=== PATIENT | male | born 1990 | race Two or more races ===

== ENCOUNTER 2024-12-21 06:34 | Emergency (ER) | payer MEDICAID, SELFPAY ==
[2024-12-21 06:35] VITALS: BMI 22.2
[2024-12-21 06:45] VITALS: BP 126/83; PULSE 60; RESP 18; TEMP 37; O2SAT 97
--- NOTE | 2024-12-21 07:16 | PD.EDRME ---
Rapid Medical Screening Exam [facility] Arrival date/time: 12/21/24 06:34 This is a 34-year-old male that comes into the emergency room with complaints of abdominal pain. Patient denies any fever, nausea, vomiting, diarrhea. Patient states his abdominal pain is to the left side. Patient has a history of a seizure disorder. Patient denies alcohol and drug use. I have greeted and performed a focused initial assessment of this patient. Initial appropriate labs ordered at this time. A comprehensive ED assessment and evaluation of the patient and analysis of all test and completion of medical decision making process will be conducted by additional ED provider. Chief Complaint: Abdominal Pain Time Seen by Provider: 12/21/24 06:43 Vital signs: Vital Signs Temperature 98.6 F 12/21/24 06:45 Pulse Rate 60 12/21/24 06:45 Respiratory Rate 18 12/21/24 06:45 Blood Pressure 126/83 12/21/24 06:45 Pulse Oximetry (%) 97 12/21/24 06:45 Oxygen Delivery Method Room Air 12/21/24 06:45 Exam: Alert and oriented, breathing even and unlabored complains of left sided abdominal pain Clinical Impression: Abdominal pain
[2024-12-21 07:24] LABS: Collection Type, Urine Voided; Squamous Epithelial Cell,Urine 0 /hpf (0-5)
[2024-12-21 07:29] LABS: Basophils # (Auto) 0.0 Thou/mm3 (0.0-0.2); Basophils % (Auto) 0 % (0-2.5); Eosinophils # (Auto) 0.1 Thou/mm3 (0.0-0.5); Eosinophils % (Auto) 1 % (0-10); Hematocrit 46.3 % (41.0-53.0); Hemoglobin 16.1 g/dL (13.5-16.0); Immature Granulocytes Auto 0.03 Thou/mm3 (0.00-0.00); Lymphocytes # (Auto) 1.5 Thou/mm3 (1.0-4.8); Lymphocytes % (Auto) 14 % (10-50); Mean Corpuscular HGB Conc 34.8 g/dl (31.0-37.0); Mean Corpuscular Hemoglobin 28.3 pg (25.0-35.0); Mean Corpuscular Volume 82 fL (80-100); Monocytes # (Auto) 0.8 Thou/mm3 (0.0-0.8); Monocytes % (Auto) 8 % (0-12); Neutrophils # (Auto) 7.8 Thou/mm3 (1.8-7.7); Neutrophils % (Auto) 76 % (37-80); Nucleated Red Blood Cell # 0.00 Thou/mm3 (0.00-0.00); Nucleated Red Blood Cell % 0 /100 WBC (0); Platelet Count 280 Thou/mm3 (140-440); RDW Standard Deviation 37.1 fL (35.1-43.9); Red Blood Count 5.68 Miln/mm3 (4.50-5.90); White Blood Count 10.3 Thou/mm3 (3.8-10.6)
[2024-12-21 07:55] LABS: Bilirubin,Urine Negative (Negative); Blood,Urine 2+ (Negative); Color,Urine Lt-Yellow (Lt Yel-Yel); Culture Indicated,Urine Not Indicated; Glucose, Urine Negative (Negative); Ketones,Urine Negative (Negative); Leukocyte Esterase,Urine Negative (Negative); Nitrite,Urine Negative (Negative); PH,Urine 6.0 (5.0-7.0); Protein,Urine Negative (Neg - Trace); RBC,Urine 41 /hpf (0-3); Specific Gravity,Urine 1.023 (1.001-1.035); Urobilinogen,Urine Negative mg/dL (0.0-1.0); WBC,Urine 2 /hpf (0-5)
[2024-12-21 07:57] LABS: Clarity,Urine Hazy (Clear/Hazy)
[2024-12-21 08:00] LABS: Alanine Aminotransferase 31 U/L (10-49); Albumin, Serum 4.9 gm/dL (3.5-5.0); Albumin/Globulin Ratio 2.2 (1.2-2.2); Alkaline Phosphatase 59 U/L (46-116); Anion Gap 7 (7-16); Aspartate Amino Transferase 24 U/L (0-34); BUN/Creatinine Ratio 11 Ratio (12-20); Bilirubin,Total 0.8 mg/dL (0.3-1.2); Blood Urea Nitrogen 9 mg/dL (9-23); Calcium 9.5 mg/dL (8.3-10.6); Calcium (Corrected) 9.5 mg/dL (8.5-10.1); Carbon Dioxide 29.1 mMol/L (20.0-31.0); Chloride 106 mMol/L (98-107); Creatinine (Component) 0.8 mg/dL (0.6-1.3); Estimated Creatinine Clearance 126.9 mL/min (>60); Globulin 2.2 gm/dL (2.3-3.5); Glucose 105 mg/dL (74-106); Lipase 30 U/L (12-53); Osmolality,Calculated 281 (275-295); Potassium 3.7 mMol/L (3.4-5.1); Sodium 142 mMol/L (136-145); Total Protein 7.1 gm/dL (5.7-8.2); eGFR > 60 See Note
[2024-12-21 08:22] LABS: Amphetamine/Methamp Scrn,U Negative (Negative); Barbiturate Screen,Urine Negative (Negative); Benzodiazepines Screen,Urine Negative (Negative); Benzoylecgonine Screen, Ur Negative (Negative); Fentanyl Screen,Urine Negative (Negative); Opiate Screen,Urine Positive (Negative); THC Screen,Urine Positive (Negative)
--- NOTE | 2024-12-21 10:36 | XR_ITS ---
Examination: Abdomen AP single view Technique: AP portable supine abdomen, single view Exam date and time: December 21, 2024, 11:00 a.m. INDICATIONS: Abdominal pain today. FINDINGS: Moderate to large amount of stool throughout the colon. No obstruction. No free air IMPRESSION: Nonobstructive bowel gas pattern
--- NOTE | 2024-12-21 10:45 | EDNOTE_ITS ---
<Statement entered by Viviane Mccullough MD - 12/21/24 16:34> I, Viviane Mccullough MD, have reviewed the history, exam, and assessment of the patient. I have evaluated the patient independently and agree with the plan of care documented by [ ]. All diagnostic studies were reviewed and discussed. I confirm the diagnosis as documented by the Resident. I was present during the Medical Decision Making for this patient. The patient's plan of care was created between myself and the Resident and consistent with our discussion of the patient's case. ED Abdominal Pain RME/HPI General Chief Complaint: Abdominal Pain Stated complaint: L SIDE ABD PAIN Time seen by provider: 12/21/24 06:43 Arrival date/time: 12/21/24 06:34 RME / HPI RME / HPI narrative: 12/21/24 06:34 Patient is a 34-year-old male with a past medical history of status post fistulectomy, hemorrhoidectomy, and history of seizures on Keppra 750 extended release at home who presented to the emergency room via private vehicle with a chief complaint of left-sided pain at the lower quadrant. Pain is localized to the right lower quadrant, described as sharp, 7 out of 10 but has improved since arriving to the emergency room. Patient has nausea and vomiting on Sunday and last bowel movement was early Sunday. Melena or hematochezia. Denied hematemesis. Denied diarrhea. Denied any sick contacts. Denied history of inflammatory bowel disease. Denied Alcohol Use and Denied illicit drug use Exam: Alert and oriented, breathing even and unlabored complains of left sided abdominal pain Impression: Abdominal pain Related Data Home Medications ?Medication ?Instructions ?Recorded ?Confirmed levetiracetam 1,000 mg tablet 1,000 mg PO BID 03/19/18 12/12/21 (Keppra) Previous Rx's ?Medication ?Instructions ?Recorded lidocaine 5 % topical ointment 5 mg topical TID PRN He morrhoid 12/12/21 surgery 30 days #50 grams acetaminophen 300 mg-codeine 30 mg 1 tab PO BID PRN pa in #14 tabs 10/16/22 tablet polyethylene glycol 3350 17 4 g PO QDAY Constipation 1 week 12/21/24 gram/dose oral powder (Miralax) #28 grams simethicone 62.5 mg oral strips 1 strip PO QDAY PRN ab dominal 12/21/24 (Gas-X) distention #18 ea Allergies Allergy/AdvReac Type Severity Reaction Status Date / Time No Known Allergies Allergy Verified 12/21/24 06:40 Review of Systems Review of Systems Narrative Review of Systems: General appearance: NO weight change, NO fatigue, NO weakness, NO fever, NO chills, NO night sweats, No cough Skin: NO rash, NO itching, NO sores, NO moles HEENT: NO Trauma, NO nausea, NO vomiting, NO visual changes, NO blurry vision, NO double vision, NO tinnitus, NO vertigo, NO ear discharge, NO rhinorrhea, NO stuffiness, NO sneezing, NO allergy, NO epistaxis. NO Hoarseness, NO sore throat, NO swollen neck. Cardiac: NO Palpitations, NO dyspnea on exertion, NO orthopnea, NO paroxysmal nocturnal dyspnea, NO edema Respiratory: NO Shortness of Breath, NO Wheezing, NO Cough, NO Sputum, NO hemoptysis GI:NO appetite, yes nausea, yes vomiting, NO dysphagia, NO changes in bowel frequency, NO stool color, NO diarrhea, NO constipation, NO hemetemesis, hx of hemorrhoids, NO melena, NO hematechezia, Yes abdominal pain, NO jaundice Renal: NO frequency, NO hesitancy, NO urgency, NO hematuria, NO nocturia, NO incontinence MSK: NO muscle weakness, NO gout, NO arthritis, NO muscle stiffness Neuro: NO headaches, NO tremors, NO weakness, NO paralysis, NO seizures, NO loss of consciousness, NO numbness. Hem: NO anemia, NO easy bruising/bleeding, NO petechiae, NO purpura Endo: NO heat/cold intolerance, NO excessive sweating, NO polyuria, NO polydipsia, NO polyphagia, NO thyroid problems, NO diabetes Pysch: NO mood, NO anxiety, NO depression ED Exam Narrative Physical exam: General Appearance: Alert & Oriented X3, thin male who is lying in bed in mild discomfort secondary to deep palpation of left lower quadrant. HEENT: Skull symmetrical and atraumatic. Conjunctivae pin and moist. Pupils equal, round, reactive to light and accommodation (PERRL). External ear without lesion or discharge. Straight, nares patient, mucosa pink, no discharge. Cardio: Normal Rate and Rhythm with S1 and S2 heart sounds. No murmurs or extra heart sounds auscultated. No bruits on carotid auscultation. No peripheral edema or cyanosis. Lungs: Symmetric with good expansion. Chest and back non-tender. Breath sounds vesicular without crackles, wheezing or rhonchi Abdomen: mild tenderness-localized to left lower quadrant, Non-distended, Normal Reactive Bowel Sounds, negative maria sign, no pain to deep palpation at left upper quadrant Neuro: Alert, cooperative, oriented to person, place, and time. Speech clear. CN grossly intact. Upper motor strength 5/5 and Lower motor strength 5/5. Sensation intact. Course Course Course Narrative: CBC: No leukocytosis noted with hemoglobin of 16.1 CMP: Electrolytes within normal limits, AST and ALT within normal limits, lipase within normal limits 30 KUB ordered Quality Measures VTE prophylaxis Orders Category Date Time Status KUB [XR abdomen 1V] Routine Exams 12/21/24 10:36 Completed CBC Stat Lab 12/21/24 07:17 Completed Comprehensive Metabolic Panel Stat Lab 12/21/24 07:17 Completed Drug Screen,Urine Stat Lab 12/21/24 07:15 Completed Lipase Stat Lab 12/21/24 07:17 Completed Urinalysis, C/S if Indicated Stat Lab 12/21/24 07:15 Completed Lactulose Syrup [Enulose Syrup] Med 12/21/24 10:40 Discontinued 10 gm PO X1 ONE Simethicone [Mylicon Chew] Med 12/21/24 10:37 Discontinued 80 mg PO X1 ONE Vital Signs Vital signs: Vital Signs Temperature 98.6 F 12/21/24 06:45 Pulse Rate 60 12/21/24 06:45 Respiratory Rate 18 12/21/24 06:45 Blood Pressure 126/83 12/21/24 06:45 Pulse Oximetry (%) 97 12/21/24 06:45 Oxygen Delivery Method Room Air 12/21/24 06:45 Abdominal Pain MDM Patient data External records reviewed:: [facility] previous records Clinical information provided by:: patient Social determinants that could affect healthcare access:: none Patient has the following chronic illnesses:: History of Fistulectomy, Hemorrhoidectomy, and history of seizures on keppra How is presenting disease/condition affected by chronic disease/condition?: uneffected by Evaluation data The following diagnostics were reviewed and interpreted by me:: lab results and radiology exam(s) Lab and/or radiology exams considered but not ordered:: none Interpretation Summary: CBC: No leukocytosis noted with hemoglobin of 16.1 CMP: Electrolytes within normal limits, AST and ALT within normal limits, lipase within normal limits 30 KUB noted to have moderate to large stool throughout colon-no obstruction Medications / Prescriptions Medications or Prescriptions considered but not ordered:: none Medication administrations:: Medication Administration History Discontinued Medications Lactulose (Lactulose Syrup 20 Gm/30 Ml Udc) 10 gm PO X1 ONE; Protocol Stop: 12/21/24 10:41 Last Admin: 12/21/24 11:22 Dose: 10 gm Documented By: AZIZA Simethicone (Simethicone 80 Mg Chew) 80 mg PO X1 ONE Stop: 12/21/24 10:38 Last Admin: 12/21/24 11:21 Dose: 80 mg Documented By: AZIZA same as above Consultations Consultation(s) initiated? (list below): No Diagnosis Differential diagnosis abdominal pain: abdominal pain, acute appendicitis, constipation, diverticulitis, gastroenteritis and pancreatitis Most likely diagnosis given after review of the tests above:: Patient presented with abdominal pain that was localized to left lower quadrant with no pyrexia, no leukocytosis, lipase negative and KUB noted to have moderate to large amount of stool throughout colon, no obstruction likely left lower quadrant pain secondary to constipation. Admission Indicated Admission indicated?: not indicated Explain why admission is indicated or not indicated:: No leukocytosis, no pyrexia, and abdominal pain resolved, KUB noted to have moderate to large amount of stool throughout colon. Admission Request Was there a request for admission?: No Disposition Plan Disposition Plan: Discharge Discharge Attestation Discharge Attestation: The patient and all family members were given an opportunity to ask questions and understood the discharge instructions. Discharge instructions specifically effects, indications for sooner follow up or return to the emergency department, and the expected course of current diagnosis. Patient condition: Stable Discharge Plan Plan Patient Disposition: HOME (Self Care) Patient condition on transfer: Stable Health Concerns: Instructions: -Please take gas-x as needed for abdominal distention and Miralax daily for regular bowel movements. -Continue to take all your medication as prescribed. --Please follow up with your primary care provider within one week of discharge -If your symptoms worsen,please seek immediate medical attention and return to your nearest emergency room -If you do not have a primary care provider, you may follow up at the [facility] at [address], [place] [address], Prescriptions/Referrals Prescriptions/Med Rec: New Gas-X 62.5 mg strip 1 strip PO QDAY PRN (Reason: abdominal distention) Qty: 18 0RF polyethylene glycol 3350 [Miralax] 17 gram/dose powder 4 g PO QDAY 7 Days Qty: 28 0RF Continued levetiracetam [Keppra] 1,000 mg Tablet 1,000 mg PO BID lidocaine 5 % ointment 5 mg TOPICAL TID MDD 3 applications rectally PRN (Reason: Hemorrhoid surgery) 30 Days Qty: 50 3RF acetaminophen-codeine 300-30 mg tablet 1 tab PO BID PRN (Reason: pain) Qty: 14 0RF Discontinued oxycodone-acetaminophen [Percocet] 10-325 mg tablet 1 tab PO TID MDD 3 PRN (Reason: Post operative pain) Qty: 40 0RF Referrals: Leonidas Landeros [Primary Care Provider] - In 1 week Problem List Clinical Impression: Constipation Patient/Caregiver Discharge Instructions Print Language: Spanish Stand Alone Forms: [employer] Info., Patient Portal Info Letter
[2024-12-21] MEDS: SIMETHICONE 80 MG CHEW PO (11:21)
[2024-12-21] MEDS: LACTULOSE SYRUP 20 GM/30 ML UDC 10 GM PO (11:22)
--- NOTE | 2024-12-21 12:19 | PD.EDRME ---
Rapid Medical Screening Exam COUNT [facility] Arrival date/time: 12/21/24 06:34 12/21/24 06:34 Patient is a 34-year-old male with a past medical history of status post fistulectomy, hemorrhoidectomy, and history of seizures on Keppra 750 extended release at home who presented to the emergency room via private vehicle with a chief complaint of left-sided pain at the lower quadrant. Pain is localized to the right lower quadrant, described as sharp, 7 out of 10 but has improved since arriving to the emergency room. Patient has nausea and vomiting on Sunday and last bowel movement was early Sunday. Melena or hematochezia. Denied hematemesis. Denied diarrhea. Denied any sick contacts. Denied history of inflammatory bowel disease. Denied Alcohol Use and Denied illicit drug use Chief Complaint: Abdominal Pain Time Seen by Provider: 12/21/24 06:43 Vital signs: Vital Signs Temperature 98.6 F 12/21/24 06:45 Pulse Rate 60 12/21/24 06:45 Respiratory Rate 18 12/21/24 06:45 Blood Pressure 126/83 12/21/24 06:45 Pulse Oximetry (%) 97 12/21/24 06:45 Oxygen Delivery Method Room Air 12/21/24 06:45 RM Narrative: 12/21/24 06:34 Patient is a 34-year-old male with a past medical history of status post fistulectomy, hemorrhoidectomy, and history of seizures on Keppra 750 extended release at home who presented to the emergency room via private vehicle with a chief complaint of left-sided pain at the lower quadrant. Pain is localized to the right lower quadrant, described as sharp, 7 out of 10 but has improved since arriving to the emergency room. Patient has nausea and vomiting on Sunday and last bowel movement was early Sunday. Melena or hematochezia. Denied hematemesis. Denied diarrhea. Denied any sick contacts. Denied history of inflammatory bowel disease. Denied Alcohol Use and Denied illicit drug use Exam: Alert and oriented, breathing even and unlabored complains of left sided abdominal pain Clinical Impression: Abdominal pain
[2024-12-21 12:45] VITALS: BP 130/83; PULSE 55; RESP 16; TEMP 36.7; O2SAT 99
== END 2024-12-21 12:52 | disposition home or self-care (01) ==
PROVIDERS: Nurse Practitioner Family; Emergency Provider Emergency Medicine; PCP Physician Assistant
DX: K59.00 Constipation, unspecified (principal)
CPT/HCPCS: 36415; 74018; 80053; 80307; 81001; 83690; 85025; 99283; A9270